=== PATIENT | male | born 1965 | race Caucasian/White ===

== ENCOUNTER → 2018-11-07 | Emergency (ER) | payer MEDICAID ==
[~2018-11-07] VITALS: Ht 188 cm; Wt 120.5 kg
[~2018-11-07] MED LIST: ENAL10TA78 PO; LIDOcaine 5% patch TP STA; cyclobenzaprine 10mg tablet PO ONE; ketorolac tromethamine 15mg/ml inj. IM ONE
[2018-11-07 23:21] VITALS: BP 139/95
--- NOTE | 2018-11-08 00:07 | NUR ---
CALLED [facility] FOR PT RIDE HOME AT 00:08. ETA 45 MINS
== END | disposition home or self-care (01) ==
LOC: ER 23:20
DX: M25.512 Pain in left shoulder (principal); Z88.8 Allergy status to other drugs, medicaments and biological substances; Z89.511 Acquired absence of right leg below knee; V92.09XA Drowning and submersion due to fall off unspecified watercraft, initial encounter; Y93.89 Activity, other specified; Y92.89 Other specified places as the place of occurrence of the external cause; Y99.8 Other external cause status
CPT/HCPCS: 96372; 99284; J1885

== ENCOUNTER 2019-01-03 19:21 | Emergency (ER) | payer MEDICAID ==
[~2019-01-03] VITALS: Ht 188 cm; Wt 125.0 kg
--- NOTE | 2019-01-03 19:50 | NUR ---
Patient with provider at this time.
[2019-01-03] MEDS ORDERED: normal saline 1000ml 1,000 ML IV ONE (19:55)
[2019-01-03] MEDS ORDERED: morphine 4 MG/ML inj SYRINge IV ONE (19:55)
[2019-01-03] MEDS ORDERED: morphine 10mg/ml inj. IV ONE ×2 (20:10→21:35)
[2019-01-03] MEDS ORDERED: ENAL10TA78 PO (20:54)
--- NOTE | 2019-01-03 21:01 | NUR ---
JHONNY Brennan just started IV and med will be admin.
--- NOTE | 2019-01-03 21:19 | NUR ---
Brought patient a cup of water.
[2019-01-03] MEDS ORDERED: ondansetron/PF 4mg/2ml inj IV ONE (21:35)
[2019-01-03 21:52] VITALS: BP 141/87
== END 2019-01-03 22:25 | disposition home or self-care (01) ==
LOC: ER 19:22
DX: S80.01XA Contusion of right knee, initial encounter (principal); Z89.511 Acquired absence of right leg below knee; J44.9 Chronic obstructive pulmonary disease, unspecified; E11.9 Type 2 diabetes mellitus without complications; Z98.890 Other specified postprocedural states; Z88.8 Allergy status to other drugs, medicaments and biological substances; Z79.899 Other long term (current) drug therapy; W18.39XA Other fall on same level, initial encounter; Y93.89 Activity, other specified; Y92.89 Other specified places as the place of occurrence of the external cause; Y99.8 Other external cause status
CPT/HCPCS: 73560; 82948; 96374; 96375; 96376; 99284; J2270; J2405; J7030

== ENCOUNTER 2019-07-25 23:53 | Emergency (ER) | payer MEDICAID ==
[~2019-07-25] VITALS: Ht 188 cm; Wt 125.0 kg
[~2019-07-25 23:53] MED LIST changes: -LIDOcaine 5% patch TP STA; -cyclobenzaprine 10mg tablet PO ONE; -ketorolac tromethamine 15mg/ml inj. IM ONE
[2019-07-26 00:49] LABS: BASOPHILS % (AUTO) 0.4 % (0-1); EOSINOPHILS # (AUTO) 0.3 X10'3 (0-0.9); EOSINOPHILS % (AUTO) 2.4 % (0-6); HEMATOCRIT 41.3 % (42.0-52.0); LYMPHOCYTES # (AUTO) 1.3 X10'3 (1.1-4.8); LYMPHOCYTES % (AUTO) 11.4 % (21-51); MEAN CORPUSCULAR HEMOGLOBIN 29.4 PG (27.0-31.0); MEAN CORPUSCULAR HGB CONC 33.9 g/dL (33.0-36.5); MEAN CORPUSCULAR VOLUME 86.6 FL (78-98); MEAN PLATELET VOLUME 8.1 FL (7.4-10.4); MONOCYTES # (AUTO) 0.7 X10'3 (0-0.9); MONOCYTES % (AUTO) 6.1 % (2-12); NEUTROPHILS % (AUTO) 79.7 % (42-75); PLATELET COUNT 295 X10'3 (140-440); RED BLOOD COUNT 4.77 X10'6 (4.70-6.10); RED CELL DISTRIBUTION WIDTH 13.9 % (11.5-14.5); WHITE BLOOD COUNT 11.2 X10'3 (4.5-11.0)
[2019-07-26 00:57] VITALS: BP 139/80
[2019-07-26 01:00] LABS: CLARITY,URINE CLEAR (Clear); COLOR,URINE YELLOW (Yellow); GLUCOSE, URINE NEGATIVE (Neg); KETONES,URINE NEGATIVE (Neg); LEUKOCYTE ESTERASE ,URINE NEGATIVE (Neg); NITRITES, URINE NEGATIVE (Neg); OCCULT BLOOD,URINE NEGATIVE (Neg); PROTEIN,URINE NEGATIVE (Neg); UA COLLECTION TYPE URINAL; UROBILINOGEN,URINE 0.2 E.U/dL (0.2-1.0)
[2019-07-26 01:03] LABS: ALANINE AMINOTRANSFERASE 37 U/L (12-78); ALBUMIN 3.4 G/DL (3.4-5.0); ALBUMIN/GLOBULIN RATIO 0.8 (1.1-1.5); ALKALINE PHOSPHATASE 151 IU/L (46-116); ANION GAP 9 (8-16); ASPARTATE AMINO TRANSFERASE 20 U/L (10-37); BILIRUBIN,TOTAL 0.2 MG/DL (0.1-1.0); BLOOD UREA NITROGEN 19 MG/DL (7-18); BUN/CREATININE RATIO 18.8 (5.4-32.0); CALCIUM 9.1 MG/DL (8.5-10.1); CHLORIDE 101 MMOL/L (99-107); CREATININE 1.01 MG/DL (0.60-1.10); GLUCOSE 268 MG/DL (70-104); LIPASE 83 U/L (73-393); SODIUM 136 MMOL/L (135-145); TOTAL CARBON DIOXIDE 26.3 MMOL/L (24-32); TOTAL PROTEIN 7.8 G/DL (6.4-8.2); eGFR 77 ML/MIN
[2019-07-26] MEDS ORDERED: famotidine/PF 10 mg/ml inj IV ONE (01:05)
[2019-07-26] MEDS ORDERED: ondansetron/PF 4mg/2ml inj IV ONE ×2 (01:05→02:50)
[2019-07-26] MEDS ORDERED: normal saline 1000ML IV soln IVB ONE (01:05)
[2019-07-26] MEDS ORDERED: pantoprazole 40 MG vial IV ONE (01:05)
[2019-07-26] MEDS: morphine 4 MG/ML inj SYRINge IV PRN ×3 (01:11→02:54)
[2019-07-26] MEDS ORDERED: LORazepam 2 mg/ml vial IV ONE (02:05)
--- NOTE | 2019-07-26 02:05 | NUR ---
pt called me in and asked me to ask the MD for antianxiety med "Its been a rough day with pain and everthing, and I'd just like to settle down." MD made aware, and he gave me vo to order ativan 1mg IV. So done.
--- NOTE | 2019-07-26 02:29 | NUR ---
Given ativan 1 mg iv. no further nausea, reports some burning in his throat from vomiting earlier. Reports pain is still 8 out of 10 and is requesting adtl pain meds.
[2019-07-26] MEDS ORDERED: ONDA4TAB6 PO (02:37)
[2019-07-26] MEDS ORDERED: OMEP20CA15 PO (02:37)
[2019-07-26] MEDS ORDERED: HYDR-3965 PO (02:37)
[2019-07-26] MEDS ORDERED: SUCR1TAB34 PO (02:37)
--- NOTE | 2019-07-26 02:41 | NUR ---
dr reed talking with pt about Ct results. he reports no significant abnormalities other that constipation. Pt to be given adtl pain meds and antiemetic then discharged. he reports his girlfriend is waiting in the parking lot for him.
[2019-07-26] MEDS ORDERED: morphine 4 MG/ML inj SYRINge IV ONE (02:50)
== END 2019-07-26 03:15 | disposition home or self-care (01) ==
LOC: ER 23:53
DX: E11.65 Type 2 diabetes mellitus with hyperglycemia (principal); K59.00 Constipation, unspecified; K85.20 Alcohol induced acute pancreatitis without necrosis or infection; J44.9 Chronic obstructive pulmonary disease, unspecified; Z98.890 Other specified postprocedural states; Z88.8 Allergy status to other drugs, medicaments and biological substances; Z79.899 Other long term (current) drug therapy; Z89.511 Acquired absence of right leg below knee
CPT/HCPCS: 36415; 74176; 80053; 81003; 83605; 83690; 85025; 96361; 96374; 96375; 96376; 99284; C9113; J2060; J2270; J2405; J3490; J7030

== ENCOUNTER 2019-10-13 21:35 | Emergency (ER) | payer MEDICAID ==
[~2019-10-13] VITALS: Ht 188 cm; Wt 125.9 kg
[~2019-10-13 21:35] MED LIST changes: +OMEP20CA15 PO; +ONDA4TAB6 PO; +SUCR1TAB34 PO
[2019-10-13 22:04] LABS: BASOPHILS % (AUTO) 0.5 % (0-1); EOSINOPHILS # (AUTO) 0.3 X10'3 (0-0.9); EOSINOPHILS % (AUTO) 3.9 % (0-6); LYMPHOCYTES # (AUTO) 1.8 X10'3 (1.1-4.8); LYMPHOCYTES % (AUTO) 22.7 % (21-51); MEAN CORPUSCULAR HGB CONC 33.3 g/dL (33.0-36.5); MEAN CORPUSCULAR VOLUME 86.9 FL (78-98); MEAN PLATELET VOLUME 7.6 FL (7.4-10.4); MONOCYTES # (AUTO) 0.6 X10'3 (0-0.9); MONOCYTES % (AUTO) 7.8 % (2-12); NEUTROPHILS # (AUTO) 5.2 X10'3 (1.8-7.7); NEUTROPHILS % (AUTO) 65.1 % (42-75); PLATELET COUNT 290 X10'3 (140-440); RED BLOOD COUNT 4.83 X10'6 (4.70-6.10); RED CELL DISTRIBUTION WIDTH 13.6 % (11.5-14.5); WHITE BLOOD COUNT 8.1 X10'3 (4.5-11.0)
[2019-10-13 22:06] LABS: CLARITY,URINE CLEAR (Clear); COLOR,URINE YELLOW (Yellow); GLUCOSE, URINE NEGATIVE (Neg); KETONES,URINE NEGATIVE (Neg); LEUKOCYTE ESTERASE ,URINE NEGATIVE (Neg); NITRITES, URINE NEGATIVE (Neg); OCCULT BLOOD,URINE NEGATIVE (Neg); PH,URINE 5.5 (4.8-8.0); PROTEIN,URINE NEGATIVE (Neg); UROBILINOGEN,URINE 0.2 E.U/dL (0.2-1.0)
[2019-10-13 22:07] LABS: UA COLLECTION TYPE CLN CATCH MIDSTREAM
[2019-10-13 22:21] LABS: ALANINE AMINOTRANSFERASE 38 U/L (12-78); ALBUMIN 3.5 G/DL (3.4-5.0); ALBUMIN/GLOBULIN RATIO 0.8 (1.1-1.5); ALKALINE PHOSPHATASE 141 IU/L (46-116); ANION GAP 9 (8-16); ASPARTATE AMINO TRANSFERASE 18 U/L (10-37); BILIRUBIN,TOTAL 0.2 MG/DL (0.1-1.0); BLOOD UREA NITROGEN 16 MG/DL (7-18); CALCIUM 9.2 MG/DL (8.5-10.1); CHLORIDE 102 MMOL/L (99-107); CREATININE 0.94 MG/DL (0.60-1.10); GLUCOSE 194 MG/DL (70-104); LIPASE 60 U/L (73-393); POTASSIUM 4.2 MMOL/L (3.5-5.1); SODIUM 136 MMOL/L (135-145); TOTAL CARBON DIOXIDE 24.8 MMOL/L (24-32); eGFR 84 ML/MIN
[2019-10-13] MEDS ORDERED: normal saline 1000ML IV soln IVB ONE (22:45)
[2019-10-13] MEDS ORDERED: ondansetron/PF 4mg/2ml inj IV ONE (22:45)
[2019-10-13] MEDS ORDERED: diphenhydrAMINE 50 mg/ml inj IV ONE (22:45)
[2019-10-13] MEDS ORDERED: famotidine/PF 10 mg/ml inj IV ONE (22:45)
[2019-10-13] MEDS ORDERED: morphine 4 MG/ML inj SYRINge IV ONE (22:45)
[2019-10-13] MEDS ORDERED: metoclopramide 5 mg/ml inj IV ONE (22:45)
[2019-10-13] MEDS ORDERED: LORazepam 2 mg/ml vial IV ONE (22:45)
[2019-10-13] MEDS ORDERED: pantoprazole 40 MG vial IV ONE (22:45)
[2019-10-13] MEDS ORDERED: LIDOcaine Viscous 15ml cup MM ONE (22:55)
[2019-10-13] MEDS ORDERED: mag hydrox/Alum hydrox/simeth 30ml oral suspension PO ONE (22:55)
[2019-10-13 23:05] LABS: TROPONIN I < 0.04 NG/ML (0.0-0.05)
[2019-10-13 23:36] VITALS: BP 152/82
[2019-10-13] MEDS ORDERED: ONDA8TAB6 PO (23:36)
[2019-10-13] MEDS ORDERED: PANT-47 PO (23:36)
--- NOTE | 2019-10-14 01:06 | NUR ---
Registration came and handed me patient dc papers and prescriptions for the patient. I called and left him a message that if he wants the prescription it is here, if he inadvertantly threw it away.
== END 2019-10-13 23:57 | disposition home or self-care (01) ==
LOC: ER 21:35
DX: K29.00 Acute gastritis without bleeding (principal); R11.2 Nausea with vomiting, unspecified; R10.13 Epigastric pain; J44.9 Chronic obstructive pulmonary disease, unspecified; E11.9 Type 2 diabetes mellitus without complications; Z98.890 Other specified postprocedural states; Z88.8 Allergy status to other drugs, medicaments and biological substances; Z79.899 Other long term (current) drug therapy
CPT/HCPCS: 36415; 73080; 80053; 81003; 83690; 84484; 85025; 96361; 96374; 96375; 99284; C9113; J1200; J2060; J2405; J2765; J3490; J7030

== ENCOUNTER 2019-11-17 19:08 | Inpatient (IN) | payer MEDICAID ==
[~2019-11-17] VITALS: Ht 188 cm; Wt 125.0 kg
[~2019-11-17 19:08] MED LIST changes: +ONDA8TAB6 PO; +PANT-47 PO
--- NOTE | 2019-11-17 19:41 | NUR ---
pt feeling anxious and asked for oxygen. 2LNC placed. SO for cardiac workup placed. He states he is panicky. Offered encouragement. Pain 09/30.
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
[2019-11-17 19:59] LABS: BASOPHILS # (AUTO) 0.1 X10'3 (0-0.2); BASOPHILS % (AUTO) 0.6 % (0-1); EOSINOPHILS # (AUTO) 0.2 X10'3 (0-0.9); EOSINOPHILS % (AUTO) 2.1 % (0-6); HEMATOCRIT 39.7 % (42.0-52.0); LYMPHOCYTES # (AUTO) 1.3 X10'3 (1.1-4.8); LYMPHOCYTES % (AUTO) 15.9 % (21-51); MEAN CORPUSCULAR HEMOGLOBIN 28.5 PG (27.0-31.0); MEAN CORPUSCULAR HGB CONC 32.9 g/dL (33.0-36.5); MEAN CORPUSCULAR VOLUME 86.7 FL (78-98); MEAN PLATELET VOLUME 7.2 FL (7.4-10.4); MONOCYTES # (AUTO) 0.5 X10'3 (0-0.9); MONOCYTES % (AUTO) 6.4 % (2-12); NEUTROPHILS # (AUTO) 6.2 X10'3 (1.8-7.7); PLATELET COUNT 292 X10'3 (140-440); RED BLOOD COUNT 4.58 X10'6 (4.70-6.10); RED CELL DISTRIBUTION WIDTH 13.7 % (11.5-14.5); WHITE BLOOD COUNT 8.3 X10'3 (4.5-11.0)
[2019-11-17] MEDS ORDERED: nitroGLYCERIN 0.4mg SUBLingual tab SL PRN ×2 (20:10→22:00)
[2019-11-17] MEDS ORDERED: LORazepam 2 mg/ml vial IV ONE (20:10)
[2019-11-17 20:19] LABS: ALANINE AMINOTRANSFERASE 40 U/L (12-78); ALBUMIN 3.2 G/DL (3.4-5.0); ALBUMIN/GLOBULIN RATIO 0.7 (1.1-1.5); ALKALINE PHOSPHATASE 117 IU/L (46-116); ANION GAP 10 (8-16); ASPARTATE AMINO TRANSFERASE 30 U/L (10-37); BILIRUBIN,TOTAL 0.2 MG/DL (0.1-1.0); BLOOD UREA NITROGEN 13 MG/DL (7-18); BUN/CREATININE RATIO 14.9 (5.4-32.0); CALCIUM 8.6 MG/DL (8.5-10.1); CHLORIDE 102 MMOL/L (99-107); CREATININE 0.87 MG/DL (0.60-1.10); GLUCOSE 229 MG/DL (70-104); POTASSIUM 4.1 MMOL/L (3.5-5.1); SODIUM 137 MMOL/L (135-145); TOTAL CARBON DIOXIDE 25.4 MMOL/L (24-32); TOTAL PROTEIN 7.5 G/DL (6.4-8.2); eGFR > 90 ML/MIN
[2019-11-17] MEDS ORDERED: morphine 4 MG/ML inj SYRINge IV ONE (20:55)
[2019-11-17] MEDS ORDERED: ADV50100 INH (21:19)
[2019-11-17] MEDS ORDERED: ATOR10TA70 PO (21:19)
[2019-11-17] MEDS ORDERED: INSU100C10 SQ (21:19)
[2019-11-17] MEDS ORDERED: LISI-600 PO (21:19)
[2019-11-17] MEDS ORDERED: INSU100I31 (21:19)
[2019-11-17] MEDS ORDERED: HYDR-3686 PO (21:21)
[2019-11-17] MEDS ORDERED: ATOR40TA71 PO (21:21)
[2019-11-17] MEDS ORDERED: PIOG15TA8 PO (21:21)
[2019-11-17] MEDS ORDERED: normal saline 1000ml 1,000 ML IV SCH (21:54)
[2019-11-17] MEDS ORDERED: morphine 2 MG/ML inj. syringe IV PRN (21:55)
[2019-11-17] MEDS ORDERED: potassium Cl 20 mEq SR tablet PO PRN ×2 (21:55)
[2019-11-17] MEDS ORDERED: acetaminophen 325mg tablet PO PRN (21:55)
[2019-11-17] MEDS ORDERED: mag hydrox/Alum hydrox/simeth 30ml oral suspension PO PRN (21:55)
[2019-11-17] MEDS ORDERED: potassium CL 10mEq/100ml bag 100 ML IV PRN ×2 (21:55)
[2019-11-17] MEDS ORDERED: ondansetron/PF 4mg/2ml inj IV PRN (21:55)
[2019-11-17] MEDS ORDERED: magnesium hydroxide 30ml (MOM) UD suspension PO PRN (21:55)
[2019-11-17] MEDS ORDERED: dextrose ORAL solution 15 GM/59 ML bottle PO PRN ×2 (22:00)
[2019-11-17] MEDS ORDERED: MESSAGE TO PHARMACY PO ONE (22:00)
[2019-11-17] MEDS ORDERED: hydrOXYzine 25 MG tablet PO PRN (22:00)
[2019-11-17] MEDS ORDERED: glucagon, human recombinant 1mg kit SUBCUT PRN (22:00)
[2019-11-17] MEDS ORDERED: ondansetron 4mg rapidly disintigrating tab PO PRN (22:00)
[2019-11-17] MEDS ORDERED: aminophylline 250mg/10ml inj. IV PRN (22:00)
[2019-11-17] MEDS ORDERED: insulin Lispro (HumaLOG) vial - multi-dose SQ SCH (22:00)
[2019-11-17] MEDS ORDERED: dextrose 50%-water 50ml dispensing syringe IV PRN ×2 (22:00)
[2019-11-17] MEDS ORDERED: metoprolol tartrate 1mg/ml inj IV PRN (22:00)
[2019-11-17] MEDS ORDERED: metoprolol tartrate 50mg tablet PO ONE (22:05)
[2019-11-17] MEDS ORDERED: lisinopril 10 MG tablet PO ONE (22:05)
[2019-11-17] MEDS ORDERED: aspirin 81mg tab.chew PO ONE (22:05)
[2019-11-17 22:14] LABS: HEMOGLOBIN A1C 9.5 % (4.5-6.2)
[2019-11-17] MEDS: morphine 2 MG/ML inj. syringe IV PRN (22:52)
[2019-11-18] VITALS (11 sets, daily range): BP systolic 111–165; BP diastolic 57–69
[2019-11-18] MEDS ORDERED: morphine 2 MG/ML inj. syringe IV STA (01:02)
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
--- NOTE | 2019-11-18 01:17 | NUR ---
I have received report from Anu BARRY and had the opportunity to ask questions.
--- NOTE | 2019-11-18 01:50 | NUR ---
Patient arrived on the unit via gurney. Tele monitor attached, vitals taken, MRSA swab collected. Physical assessment performed.
[2019-11-18] MEDS: morphine 2 MG/ML inj. syringe IV PRN ×3 (03:06→12:55)
[2019-11-18 03:17] LABS: BASOPHILS # (AUTO) 0.1 X10'3 (0-0.2); BASOPHILS % (AUTO) 0.7 % (0-1); EOSINOPHILS # (AUTO) 0.3 X10'3 (0-0.9); EOSINOPHILS % (AUTO) 3.3 % (0-6); HEMATOCRIT 39.5 % (42.0-52.0); HEMOGLOBIN 13.3 g/dl (14.0-17.9); LYMPHOCYTES # (AUTO) 1.8 X10'3 (1.1-4.8); LYMPHOCYTES % (AUTO) 23.5 % (21-51); MEAN CORPUSCULAR HEMOGLOBIN 29.1 PG (27.0-31.0); MEAN CORPUSCULAR HGB CONC 33.8 g/dL (33.0-36.5); MEAN CORPUSCULAR VOLUME 86.3 FL (78-98); MEAN PLATELET VOLUME 7.6 FL (7.4-10.4); MONOCYTES # (AUTO) 0.7 X10'3 (0-0.9); MONOCYTES % (AUTO) 8.5 % (2-12); PLATELET COUNT 282 X10'3 (140-440); RED BLOOD COUNT 4.58 X10'6 (4.70-6.10); RED CELL DISTRIBUTION WIDTH 13.4 % (11.5-14.5); WHITE BLOOD COUNT 7.8 X10'3 (4.5-11.0)
[2019-11-18 04:01] LABS: ALANINE AMINOTRANSFERASE 27 U/L (12-78); ALBUMIN 3.1 G/DL (3.4-5.0); ALBUMIN/GLOBULIN RATIO 0.8 (1.1-1.5); ALKALINE PHOSPHATASE 112 IU/L (46-116); ANION GAP 5 (8-16); ASPARTATE AMINO TRANSFERASE 13 U/L (10-37); BILIRUBIN,TOTAL 0.2 MG/DL (0.1-1.0); BLOOD UREA NITROGEN 11 MG/DL (7-18); BUN/CREATININE RATIO 12.9 (5.4-32.0); CALCIUM 8.8 MG/DL (8.5-10.1); CHLORIDE 104 MMOL/L (99-107); CREATININE 0.85 MG/DL (0.60-1.10); GLUCOSE 208 MG/DL (70-104); POTASSIUM 3.9 MMOL/L (3.5-5.1); SODIUM 137 MMOL/L (135-145); TOTAL CARBON DIOXIDE 28.2 MMOL/L (24-32); eGFR > 90 ML/MIN
[2019-11-18 04:04] LABS: CHOL/HDL RATIO 3.9 (0.00-4.99); CHOLESTEROL 182 MG/DL (0-200); HDL CHOLESTEROL 47 MG/DL (35-60); LDL CHOLESTEROL 117 MG/DL (50-100); TRIGLYCERIDES 115 MG/DL (20-135)
[2019-11-18] MEDS ORDERED: regadenoson 0.4mg/5ml syringe IV ONE (06:00)
--- NOTE | 2019-11-18 06:23 | NUR ---
Problems reprioritized. Patient report given, questions answered & plan of care reviewed with Margaret BARRY.
--- NOTE | 2019-11-18 06:34 | NUR ---
Patient in room PCU 3012. I have received report from JHONNY Mccray and had the opportunity to ask questions and assume patient care. Pt sitting up in bed, resting comfortably at change of shift.
[2019-11-18] MEDS ORDERED: pantoprazole 40mg Tablet.DR PO SCH (07:30)
[2019-11-18] MEDS ORDERED: atorvastatin 20mg tablet PO SCH (08:00)
[2019-11-18] MEDS ORDERED: K and/or MAG REPLACEMENT MC SCH (08:00)
[2019-11-18] MEDS ORDERED: heparin, porcine 5000 units/ml vial SQ SCH (08:00)
[2019-11-18] MEDS ORDERED: aspirin 81mg tab.chew PO SCH (08:30)
--- NOTE | 2019-11-18 09:15 | NUR ---
Charted morphine reassessment as "not done", it was supposed to be reassessed on the other shift.
[2019-11-18] MEDS ORDERED: BUPR1FIL3 SL (10:34)
[2019-11-18] MEDS ORDERED: LISI10TA4 PO (10:34)
[2019-11-18] MEDS ORDERED: METF-950 PO (10:34)
[2019-11-18] MEDS ORDERED: BECL10.62 INH (10:34)
[2019-11-18] MEDS ORDERED: PIOG30TA71 PO (10:34)
[2019-11-18] MEDS ORDERED: IBUP-1985 PO (10:34)
[2019-11-18] MEDS ORDERED: ALBU8.5H8 INH (10:34)
--- NOTE | 2019-11-18 10:36 | NUR ---
Paged Dr Senior for pt's anxiety. PAGER ID: [phone] MESSAGE: James Diaz [id number] Pt states having anxiety, wanting something for it. Please advise? Thanks Margaret Dodd [phone]
[2019-11-18] MEDS ORDERED: LORazepam 1 MG tablet PO ONE (10:40)
--- NOTE | 2019-11-18 12:47 | NUR ---
Paged Dr Senior regarding pt's vidhya being resulted, and pt wanting to eat PAGER ID: [phone] MESSAGE: Re James Klein [id number] Pt's Vidhya has resulted, pt is wanting to eat? Please advise. Thanks Margaret Dodd [phone]
[2019-11-18] MEDS ORDERED: CLON-528 PO (13:08)
--- NOTE | 2019-11-18 14:46 | NUR ---
DM Consult: A1C 9.5. Pt seen by LIZ for written/verbal DM ed w/ RD contact information provided. Pt declined verbal DM ed at this time; reports takes meds per rx, girlmanuel is RN and helps w/ carb controlled diet at home, and most recent A1C 11.0 [employer]ARD [employer]IVER 3 months ago. Addendum: 11/18/19 at [address] Amended: Links added.
--- NOTE | 2019-11-18 15:00 | NUR ---
Pt stable for discharge home per MD orders. All instructions were given, questions were answered appropriately. All belongings were collected and sent with pt. Two PIV's discontinued, cannula intact. Tele discontinued, telephone interceptor operator notified. Hard copy of prescription for Klonipin was given to pt. Pt was wheeled to lobby and left in personal vehicle with managed care specialist.
[2019-11-18] MEDS ORDERED: insulin glargine (Lantus) pen - multi-dose SQ SCH (21:00)
== END 2019-11-18 15:14 | disposition home or self-care (01) | DRG 203 ==
LOC: ER 19:08 → ED HOLD 21:54 → PCU 3S 11-18 01:48
PROVIDERS: ADMIT Internal Medicine; ATTEND Internal Medicine
PROC: 4A02XM4 Measurement of Cardiac Total Activity, External Approach (ICD-10-PCS; principal; 2019-11-18)
PROC: 3E033HZ Introduction of Radioactive Substance into Peripheral Vein, Percutaneous Approach (ICD-10-PCS; 2019-11-18)
DX: R07.89 Other chest pain (principal); E11.9 Type 2 diabetes mellitus without complications; F43.10 Post-traumatic stress disorder, unspecified; I10 Essential (primary) hypertension; J44.9 Chronic obstructive pulmonary disease, unspecified; G54.6 Phantom limb syndrome with pain; F11.20 Opioid dependence, uncomplicated; E78.5 Hyperlipidemia, unspecified; Z79.899 Other long term (current) drug therapy; Z89.511 Acquired absence of right leg below knee; Z79.84 Long term (current) use of oral hypoglycemic drugs; Z87.891 Personal history of nicotine dependence
CPT/HCPCS: 36415; 71045; 76937; 78452; 80053; 80061; 82948; 83036; 83880; 84484; 85025; 87081; 93005; 93017; 96374; 96375; 99285; A9500; G0378; J1644; J1815; J2060; J2270; J2785; J7030; Q0177